=== PATIENT | male | born 1930 | race Caucasian/White ===

== ENCOUNTER 2017-11-03 14:46 | Emergency (ER) | payer OTHER, MEDICARE ==
[~2017-11-03] VITALS: Ht 147.3 cm; Wt 67.1 kg
[~2017-11-03 14:46] MED LIST: TYLENOL #31 TAB PO
[2017-11-03 16:07] LABS: ABSOLUTE BASOPHIL COUNT 0 /CUMM (0.0-0.2); ABSOLUTE EOSINOPHIL COUNT 0.3 /CUMM (0.0-0.7); ABSOLUTE GRANULOCYTE CT 4.8 /CUMM (1.4-6.5); ABSOLUTE LYMPH COUNT 1.3 /CUMM (1.2-3.4); ABSOLUTE MONOCYTE COUNT 0.8 /CUMM (0.10-0.60); BASOPHIL % 0.3 % (0.0-2.0); GRANULOCYTE % 66.8 % (42.2-75.2); HEMATOCRIT 36.3 % (42-52); MEAN CORPUSCULAR HGB 32.3 PG (27.0-31.0); MEAN CORPUSCULAR HGB CONC 34.2 G/DL (33.0-37.0); MEAN CORPUSCULAR VOLUME 94.6 FL (80.0-94.0); MEAN PLATELET VOLUME 9.1 FL (7.4-10.4); PLATELET COUNT 167 /CUMM (130-400); RBC DISTRIBUTION WIDTH 13.9 % (11.5-14.5); RED BLOOD CELL CT 3.84 /CUMM (4.70-6.10); WHITE BLOOD CELL COUNT 7.2 /CUMM (4.8-10.8)
[2017-11-03 16:35] LABS: PT 11.7 SEC (9.4-12.5)
--- NOTE | 2017-11-03 17:00 | CT SCAN REPORT ---
EXAMINATION: CT HEAD WITHOUT CONTRAST CLINICAL INFORMATION: Trauma to head. COMPARISON: 09/02/2017. TECHNIQUE: Contiguous helical images of the brain were obtained without IV contrast. Multiplanar reconstructions were performed. DLP: 620 mGy-cm. FINDINGS: There are no pathologic extra-axial fluid collections. The lateral, third, fourth ventricles are prominent, though stable, age-appropriate and concordant with the appearance of the sulci. 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 There is no evidence for acute intraparenchymal hemorrhage or infarct. There is neither mass nor mass effect. There is no shift of midline structures. The paranasal sinuses and mastoid air cells are clear. There are no osseous lesions. IMPRESSION: No evidence for acute intracranial injury. Stable head CT.
--- NOTE | 2017-11-03 17:49 | CT SCAN REPORT ---
EXAMINATION: CT CERVICAL SPINE WITHOUT CONTRAST CLINICAL INFORMATION: Fall. COMPARISON: None TECHNIQUE: Multidetector CT acquisition of the cervical spine obtained without contrast. Multiplanar reformats are acquired and utilized for image interpretation. FINDINGS: Reversal of the cervical lordosis. Degenerative appearing anterior subluxation of C3 on C4 and C4 on C5. Long segment laminectomy spanning the C3-C7 levels. No acute fractures and no acute subluxations. Multilevel hypertrophic facet arthropathy. Severe disc volume loss at C6-C7 and moderate disc volume loss at C5-C6. Multilevel endplate osteophytes. Hypertrophic degenerative changes at the atlantodental interval. Atlantooccipital assimilation bilaterally. Vascular stent traversing left carotid bifurcation. IMPRESSION: - No acute osseous findings. - Long segment laminectomy at C3-C7 and advanced degenerative changes as described. Atlantooccipital assimilation bilaterally.
[2017-11-03 18:26] VITALS: BP 146/68
--- NOTE | 2017-11-03 18:41 | ED GENERAL ADULT ---
History of Present Illness General Chief Complaint: Fall Stated Complaint: MECHANICAL FALL HIT HEAD POSITIVE 324MG ASPIRIN Source: patient, family Exam Limitations: no limitations Allergies Coded Allergies: NO KNOWN ALLERGIES (09/02/17) Reconcile Medications Tylenol With Codeine (Tylenol With Codeine #3 Tablet) 1 TAB TAB 1 TAB PO Q6H PRN PAIN Triage Note: PT STATES HE FELL HIS FOOT GOT TANGLED IN HIS OTHER FOOT AND HE FELL HITTING HIS HEAD. PT STATES HE HAS HX OF CVA. PT STATES HE TAKES 325MG OF ASA QHS. PT DOES NOT HAVE LAC TO BACK OF HIS HEAD. - LOC PT STATES HE WAS ABLE TO WALK TO THE NEXT ROOM AFTER HE WAS ASSISTED TO HIS FEET BY HIS GRANDDAUGHTER. Triage Nurses Notes Reviewed? yes Onset: Abrupt Duration: minute(s): Timing: single episode today HPI: 87-year-old male with a history of CVA, hypertension, hypothyroid presenting status post mechanical fall just prior to arrival. Patient reports that he was in the bathroom and his feet got tangled while walking, he tripped and fell backwards striking the back of his head on the door. Denies any preceding symptoms such as lightheadedness, dizziness, chest pain, shortness of breath. Denies loss of consciousness. Not in any anticoagulation. Denies headache, visual changes, nausea, vomiting since the fall. Patient has no pain on arrival and is asymptomatic, but presents with his daughter who just like him to be evaluated for injuries. (Rosana Martin) Vital Signs & Intake/Output Vital Signs & Intake/Output Vital Signs Date Time Temp Pulse Resp B/P B/P Pulse O2 O2 Flow FiO2 Mean Ox Delivery Rate 11/03 1826 98.5 64 17 146/68 98 Room Air 11/03 1543 98.1 58 18 155/69 98 Room Air (Lacey VICENTE,Jose Mahmood) Past History Travel History Traveled to [place] past 21 day No Medical History Any Pertinent Medical History? see below for history Neurological: CVA, NERVE PAIN Cardiovascular: hypertension Endocrine: hypothyroidism Surgical History Surgical History: BILAT HIP REPLACEMENT Psychosocial History What is your primary language [place] Tobacco Use: Never used ETOH Use: denies use Illicit Drug Use: denies illicit drug use Family History Hx Contributory? No (Rosana Martin) Review of Systems Review of Systems Constitutional: Reports: no symptoms. EENTM: Reports: no symptoms. Respiratory: Reports: no symptoms. Cardiovascular: Reports: no symptoms. GI: Reports: no symptoms. Genitourinary: Reports: no symptoms. Musculoskeletal: Reports: no symptoms. Skin: Reports: no symptoms. Neurological/Psychological: Reports: no symptoms. Hematologic/Endocrine: Reports: no symptoms. Immunologic/Allergic: Reports: no symptoms. All Other Systems: Reviewed and Negative (Rosana Martin) Physical Exam Physical Exam General Appearance: well developed/nourished, no apparent distress, alert, awake , comfortable Head: normal appearance, approximately 2 cm of ecchymosis to the right posterior parietal region Eyes: Bilateral: normal appearance, PERRL, EOMI. 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 Skin: intact, normal color, warm/dry Core Measures ACS in differential dx? No CVA/TIA Diagnosis: No Sepsis Present: No Sepsis Focused Exam Completed? No (Rosana Martin) Progress Differential Diagnoses I considered the following diagnoses in my evaluation of the patient: [Head contusion versus concussion versus ICH versus vertebral fracture] Initial ED EKG: NSR, LVH, ST elevation (anterior leads w/LVH) (Rosana Martin) Plan of Care: Orders Procedure Date/time Status TROPONIN LEVEL 11/03 1542 Complete PROTHROMBIN TIME 11/03 1542 Complete COMPREHENSIVE METABOLIC PANEL 11/03 1542 Complete CBC WITHOUT DIFFERENTIAL 11/03 154 Complete EKG 11/03 154 Active Current Medications Sig/Jannet Start time Last Medication Dose Stop Time Status Admin Ceftriaxone Sodium 1,000 MG ONCE ONE 11/03 1700 CAN (Rocephin) 11/03 1701 Vancomycin HCl 1,000 MG ONCE ONE 11/03 1700 CAN Sodium Chloride 250 ML 11/03 1759 (Normal Saline 0.9%) Laboratory Tests 11/03/17 1556: Anion Gap 10, Estimated GFR > 60, BUN/Creatinine Ratio 23.8, Glucose 159 H, Calcium 8.9, Total Bilirubin 0.3, AST 39, ALT 49, Alkaline Phosphatase 161 H, Troponin I < 0.01, Total Protein 7.3, Albumin 3.6, Globulin 3.7, Albumin/ Globulin Ratio 1.0 L, PT 11.7, INR 1.07, CBC w Diff NO MAN DIFF REQ, RBC 3.84 L, MCV 94.6 H, MCH 32.3 H, MCHC 34.2, RDW 13.9, MPV 9.1, Gran % 66.8, Lymphocytes % 18.2 L, Monocytes % 10.7 H, Eosinophils % 4.0, Basophils % 0.3, Absolute Granulocytes 4.8, Absolute Lymphocytes 1.3, Absolute Monocytes 0.8 H, Absolute Eosinophils 0.3, Absolute Basophils [address] elevation secondary to LVH, troponin negative, patient denies chest pain or shortness of breath. Labs unremarkable. CT head and C-spine unremarkable for acute injury. Patient remained well-appearing with no complaints of pain. Cleared for discharge home, counseled on supportive care, will follow up with PMD, and given strict return precautions. (Rosana Martin) (Lacey VICENTE,Jose Mahmood) Departure Departure Disposition: HOME OR SELF CARE Condition: Stable Clinical Impression Primary Impression: Closed head injury Secondary Impressions: Fall Referrals: Arsenio VICENTE,Asya Mireles (PCP/Family) Additional Instructions: Use Tylenol as needed for pain. Follow-up with your primary care provider for reevaluation. Return to the emergency department for any new or worsening symptoms. Departure Forms: Customer Survey General Discharge Information (Rosana Martin) PA/CMO Co-Sign Statement Statement: ED Attending supervision documentation- [X] I saw and evaluated the patient. I have also reviewed all the pertinent lab results and diagnostic results. I agree with the findings and the plan of care as documented in the PA's/CMO's documentation. Patient presents for evaluation of injury sustained status post fall. Patient states that he tripped over his own feet and fell backwards hitting his head. Physical examination reveals a comfortable appearing gentleman with a nonfocal neurologic examination and some mild tenderness over the left occipital region. [] I have reviewed the ED Record and agree with the PA's/CMO's documentation. [] Additions or exceptions (if any) to the PAs/CMO's note and plan are summarized below: [] (Lacey VICENTE,Jose Mahmood) Critical Care Note Critical Care Note Critical Care Time: non-applicable (Daya JAVIER,Rosana)
== END 2017-11-03 19:16 ==
LOC: ERH 14:46
PROVIDERS: Physician Assistant
DX: S09.90XA Unspecified injury of head, initial encounter (principal); I10 Essential (primary) hypertension; E03.9 Hypothyroidism, unspecified; W18.09XA Striking against other object with subsequent fall, initial encounter; Y93.01 Activity, walking, marching and hiking; Y92.89 Other specified places as the place of occurrence of the external cause
CPT/HCPCS: 93005; 93010